=== PATIENT | male | born 1945 | race American Indian/Alaskan Native ===

== ENCOUNTER 2016-10-24 11:17 | Day surgery (SDC) | payer MEDICARE ==
[2016-10-24] MEDS ORDERED: VERSED IV NR (13:00)
[2016-10-24] MEDS ORDERED: ANCEF/STERILE WATER 2 GM/20 ML IV NR (13:00)
[2016-10-24] MEDS ORDERED: NACL 0.9% 1000 ML 1,000 ML IV SCH (13:00)
[2016-10-24] MEDS ORDERED: PEPCID PO NR (13:00)
--- NOTE | 2016-10-24 13:03 | Anesthesia Day of Surgery ---
Anesthesia Day of Surgery - Day of Surgery Patient Examined: Yes Patient H&P Reviewed: Yes Patient is NPO: Yes
--- NOTE | 2016-10-24 13:03 | Anesthesia Consultation ---
Anesthesia Consult and Med Hx Date of service: 10/24/16 - Airway Anesthetic Teeth Evaluation: Poor ROM Head & Neck: Adequate Mental/Hyoid Distance: Adequate Mallampati Class: Class II Intubation Access Assessment: Probably Good - Pulmonary Exam CTA: Yes - Cardiac Exam Cardiac Exam: RRR - Pre-Operative Health Status ASA Pre-Surgery Classification: ASA3 Proposed Anesthetic Plan: MAC - Pulmonary Hx Smoking: Yes (CIGARETTES 1 PPD X 8 YRS, QUIT 45 YRS AGO) Hx Asthma: Yes (LAST ATTACK 15+ YRS AGO) - Cardiovascular System Hx Hypertension: Yes (FOR 9 YRS, DR. JASMIN GRAHAM- PCP) - Central Nervous System Hx Psychiatric Problems: No - Hematic Hx Anemia: Yes (5 YRS AGO) - Other Systems Hx Alcohol Use: Yes ([employer] SOCIALLY) Hx Cancer: Yes (RECTAL, DX: IN 2009)
[2016-10-24] MEDS ORDERED: DILAUDID IV PRN (13:05)
[2016-10-24] MEDS ORDERED: PERCOCET 5/325 PO PRN (13:05)
[2016-10-24] MEDS ORDERED: DILAUDID ONE (13:57)
[2016-10-24] MEDS ORDERED: DIPRIVAN 10 MG/ML IV ONE (13:57)
[2016-10-24] MEDS ORDERED: VERSED ONE (13:57)
[2016-10-24] MEDS ORDERED: XYLOCAINE MPF 2% ONE (13:58)
[2016-10-24] MEDS ORDERED: ZOFRAN ONE (14:39)
[2016-10-24] MEDS ORDERED: XYLOCAINE 1% 20 mL INFILTRATI ONE (14:41)
[2016-10-24] MEDS ORDERED: MARCAINE 0.25% INFILTRATI ONE (14:41)
[2016-10-24] MEDS ORDERED: NACL 0.9% IR ONE (14:41)
--- NOTE | 2016-10-24 15:22 | Discharge Summary ---
Short Stay Discharge Plan Weight Bearing Status: Full Weight Bearing Diet: regular Wound: per your surgeon's advice
[2016-10-24] MEDS ORDERED: NORCO 5/325 PO PRN (15:23)
--- NOTE | 2016-10-24 15:23 | Post Anesthesia Evaluation ---
- Post Anesthesia Evaluation Patient Participated: Yes Airway Patent: Yes Stable Respiratory Function: Yes Nausea/Vomiting: No Temp > 96.8F: Yes Pain Manageable: Yes Adequeate Hydration: Yes Anesthesia Complications: No Block Receding Appropriately: Not Applicable Patient on Ventilator: No
--- NOTE | 2016-10-24 15:34 | XRay Report ---
AP CHEST: HISTORY: Postop Yhalic-v-Ewla removal AP view of the chest demonstrates a normal mediastinal and cardiac contour with clear lungs and normal bony and soft tissue structures. IMPRESSION: Unremarkable AP chest.
[2016-10-24 15:59] VITALS: BP 149/81
--- NOTE | 2016-10-24 16:04 | Operative Report ---
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 PROCEDURE: Removal of Infusaport under local standby anesthesia. DESCRIPTION OF PROCEDURE: With the patient in supine position, the patient was prepped and draped in usual fashion. I infiltrated the area over the port on the right upper chest with about 5 mL of 0.25% Marcaine then an incision performed in deep subcutaneous tissue. I was able to reach the port at which point I grasped it with a Zain and then I was able to pull the whole tubing. The opening of the tubing was then closed with the use of 3-0 Vicryl x 2. Then, the wound was closed in layers. I used 3-0 Vicryl for the subcutaneous tissue interruptedly and the skin with 4-0 Vicryl continuous, Steri-Strips, 2 x 2, and Tegaderm. I did apply a weight ____ over the area. The patient was then transferred to the recovery in good condition, going to check his chest x-ray. JOB# [id number] KISHOR/DAVIN
--- NOTE | 2016-10-24 21:27 | Discharge Summary ---
FINAL DIAGNOSIS: Prostatic cancer with involvement of the colon areas as per the patient's description. HOSPITAL COURSE: This patient came to have a port removed. This was inserted on the right upper chest about 5 years ago. He came for removing it, this was done under local standby anesthesia. Everything went fine. I removed it, then the wound was closed, with 3x0 vicryl bandage there, going to check the chest x- ray in the recovery room. He was given prescription for Vicodin, to see me in about 10 days. JOB# [id number] KISHOR/DAVIN TAI
== END 2016-10-24 16:30 | disposition home or self-care (01) ==
LOC: OR 11:17
PROVIDERS: ATTEND Surgery
DX: C61 Malignant neoplasm of prostate (principal); C18.9 Malignant neoplasm of colon, unspecified; I10 Essential (primary) hypertension; E78.00 Pure hypercholesterolemia, unspecified; J45.909 Unspecified asthma, uncomplicated; D64.9 Anemia, unspecified; Z72.89 Other problems related to lifestyle; Z87.891 Personal history of nicotine dependence; Z85.048 Personal history of other malignant neoplasm of rectum, rectosigmoid junction, and anus
CPT/HCPCS: 36590; 71010; 88302; J0690; J1170; J2250; J2405; J2704; J7030; 88300; 88305